=== PATIENT | male | born 1970 | race Caucasian/White ===

== ENCOUNTER 2022-05-14 05:58 | Emergency (ER) | payer OTHER ==
[2022-05-14] MEDS ORDERED: fentaNYL 100 MCG/2 ML SDV IVPUSH ONE (07:19)
[2022-05-14] MEDS ORDERED: Ondansetron 4 MG/2 ML SDV IVPUSH ONE (07:19)
[2022-05-14] MEDS ORDERED: Lactated Ringers 1,000 ML IV SCH (07:30)
[2022-05-14] MEDS ORDERED: Acetaminophen/HYDROcodone 325-5 MG Tab PO ONE (08:51)
== END 2022-05-14 09:55 | disposition home or self-care (01) ==
LOC: JD.ED 05:58
DX: N13.2 Hydronephrosis with renal and ureteral calculous obstruction (principal); Z88.5 Allergy status to narcotic agent
CPT/HCPCS: 36415; 74176; 80053; 81001; 85025; 96361; 96374; 96375; 99284; A9270; J2405; J3010; J7120